=== PATIENT | female | born 1940 | race Caucasian/White ===

== ENCOUNTER → 2016-03-11 | Outpatient (CLI) | payer MEDICARE, OTHER ==
[~2016-03-11] MED LIST: LEVO75TA6 PO; LISI-275 PO
[2016-03-11 13:08] LABS: Basophils # (auto) 0 uL; Basophils % (auto) 0.5 % (0.0-2.0); Eosinophils # (auto) 0.2 uL; Eosinophils % (auto) 2.7 % (0.0-7.0); Hematocrit 41.4 % (36.0-46.0); Lymphocytes # (auto) 0.9 uL; Lymphocytes % (auto) 16.3 % (10.0-50.0); Mean Corpuscular Hemoglobin 30.4 pg (28.0-32.0); Mean Corpuscular Hgb Conc. 31.5 g/dL (32.0-36.0); Mean Corpuscular Volume 96.7 fL (80.0-100.0); Mean Platelet Volume 8.3 fL (7.4-10.4); Monocytes # (auto) 0.5 uL; Neutrophils % (auto) 71.5 % (37.0-80.0); Platelet Count (auto) 277 10^3/uL (140-450); Red Cell Distribution Width 14.6 % (11.6-16.0); White Blood Cell 5.6 10^3/uL (4.4-10.8)
[2016-03-11 13:33] LABS: Albumin 3.8 g/dL (3.4-5.0); Calcium 8.9 mg/dL (8.5-10.1); Potassium 3.5 mmol/L (3.5-5.1); Total Protein 7.6 g/dL (6.4-8.2)
[2016-03-11 13:35] LABS: Bilirubin, Total 0.6 mg/dL (0.2-1.0)
[2016-03-11 14:30] LABS: Uric Acid 5.1 mg/dL (2.6-6.0)
== END | disposition home or self-care (01) ==
LOC: LAB 11:39
DX: M06.9 Rheumatoid arthritis, unspecified (principal); M10.00 Idiopathic gout, unspecified site; M45.0 Ankylosing spondylitis of multiple sites in spine; M25.50 Pain in unspecified joint; D64.9 Anemia, unspecified; Z79.899 Other long term (current) drug therapy; I10 Essential (primary) hypertension
CPT/HCPCS: 36415; 80053; 84550; 85025; 85652; 86141

== ENCOUNTER 2020-11-05 09:53 | Inpatient (IN) | payer MEDICARE ==
[~2020-11-05] VITALS: Ht 165.1 cm; Wt 48.8 kg
[2020-11-05] MEDS ORDERED: SODIUM CHLORIDE 0.9% 1,000 ML IV ONE (10:15)
[2020-11-05] MEDS ORDERED: SODIUM CHLORIDE 0.9% 500 ML IV ONE (10:15)
[2020-11-05 11:35] LABS: Basophils # (auto) 0 10 ^3/uL (0-0.2); Basophils % (auto) 0.6 % (0.0-2.0); Eosinophils # (auto) 0.2 10 ^3/uL (0-0.8); Hemoglobin 11.2 g/dL (12.2-16.2); Lymphocytes # (auto) 0.8 10 ^3/uL (0.4-5.4); Lymphocytes % (auto) 11.2 % (10.0-50.0); Mean Corpuscular Volume 90.8 fL (80.0-100.0); Monocytes # (auto) 0.6 10 ^3/uL (0-1.3); Monocytes % (auto) 8.9 % (0.0-12.0); Neutrophils # (auto) 5.2 10 ^3/uL (1.6-8.6); Neutrophils % (auto) 76.3 % (37.0-80.0); Red Blood Cells 3.75 10^6/uL (4.0-5.20); Red Cell Distribution Width 20.6 % (11.8-14.3); White Blood Cell 6.8 10^3/uL (4.4-10.8)
[2020-11-05 11:44] LABS: Albumin 2.8 g/dL (3.4-5.0); Calcium 8.3 mg/dL (8.5-10.1); Magnesium 2.4 mg/dL (1.6-2.6); Potassium 3.2 mmol/L (3.5-5.1)
[2020-11-05 11:47] LABS: BUN/Creatinine Ratio 20.8; Bilirubin, Total 0.7 mg/dL (0.2-1.0); Total Protein 6.5 g/dL (6.4-8.2)
[2020-11-05 11:48] LABS: INR 1.21 (0.9-1.15); Partial Thromboplastin Time 27.5 sec (23.6-33.0)
[2020-11-05 12:09] LABS: Urine Bacteria MANY /hpf (None Seen); Urine Blood Negative /uL (Negative); Urine Mucus MODERATE (None Seen); Urine Specific Gravity 1.026 (1.001-1.035); Urine WBC 12 /hpf (0 - 5)
[2020-11-05] MEDS ORDERED: cefTRIAXone 1GM/50ML D5W 50 ML IV ONE (13:30)
[2020-11-05] MEDS ORDERED: POTASSIUM EFFERVESENT TAB 25 MEQ PO ONE (13:30)
[2020-11-05] MEDS ORDERED: LEVOTHYROXINE SODIUM 100 MCG/5 ML INJ IV ONE (13:30)
[2020-11-05] MEDS ORDERED: FUROSEMIDE 20 MG/2 ML VIAL IV ONE (13:30)
[2020-11-05] MEDS ORDERED: HYDROcodone-ACET 5/325MG TAB PO PRN (13:45)
[2020-11-05] MEDS ORDERED: NITROGLYCERIN 0.4 MG SL TAB SL PRN (13:45)
[2020-11-05] MEDS ORDERED: MORPHINE SULFATE INJECTION 2 MG/ML SYRG IV PRN ×2 (13:45)
[2020-11-05] MEDS ORDERED: hydrALAZINE HCL 20 MG/ML VL IV PRN (13:45)
[2020-11-05] MEDS ORDERED: ONDANSETRON HCL 4 MG/2 ML VIAL IV PRN (13:45)
[2020-11-05] MEDS ORDERED: ACETAMINOPHEN 500 MG TAB PO PRN (13:45)
[2020-11-05 14:38] LABS: Cholesterol 130 mg/dL (< 200)
[2020-11-05 14:40] LABS: HDL Cholesterol 42 mg/dL (40-59); LDL Cholesterol 85 mg/dL (< 100); Triglycerides 68 mg/dL (< 150)
[2020-11-05] MEDS ORDERED: INSUINJ37 SC (18:30)
[2020-11-05] MEDS ORDERED: ATOR10TA52 PO (18:30)
[2020-11-05] MEDS ORDERED: OMEP20TA PO (18:30)
[2020-11-05] MEDS ORDERED: PAR20T GT (18:30)
[2020-11-05] MEDS ORDERED: CARV6.2551 PO (18:30)
[2020-11-05] MEDS ORDERED: LEV50T GT (18:30)
[2020-11-05] MEDS ORDERED: MEGE1SUS5 PO (18:30)
[2020-11-05] MEDS ORDERED: SITA50TA PO (18:30)
[2020-11-05] MEDS ORDERED: DEXTROSE (50%) 50ML SYRG IV PRN (20:45)
[2020-11-05] MEDS: InsuLIN REG 1unit/0.01ml Soln (100units/ml) SC SCH (22:00)
[2020-11-05] MEDS: DOCUSATE SOD 100 MG CAP PO SCH (22:11)
[2020-11-05] MEDS: ATORVASTATIN 20 MG TAB PO SCH (22:12)
[2020-11-05] MEDS: METOPROLOL TARTRATE 25 MG TAB PO SCH (22:12)
[2020-11-05] MEDS: ACCU-CHEK COMFORT CURVE STRIP VI SCH (22:13)
[2020-11-05 22:27] VITALS: BP 125/102
[2020-11-06 05:14] VITALS: BP 142/80
[2020-11-06 05:54] LABS: Basophils # (auto) 0 10 ^3/uL (0-0.2); Basophils % (auto) 0.4 % (0.0-2.0); Eosinophils # (auto) 0 10 ^3/uL (0-0.8); Eosinophils % (auto) 0.1 % (0.0-7.0); Hematocrit 31.7 % (36.0-46.0); Hemoglobin 10.8 g/dL (12.2-16.2); Lymphocytes # (auto) 0.6 10 ^3/uL (0.4-5.4); Lymphocytes % (auto) 9.3 % (10.0-50.0); Mean Corpuscular Hemoglobin 30.4 pg (28.0-32.0); Mean Corpuscular Volume 89.6 fL (80.0-100.0); Monocytes # (auto) 0.4 10 ^3/uL (0-1.3); Monocytes % (auto) 7.1 % (0.0-12.0); Neutrophils # (auto) 5.2 10 ^3/uL (1.6-8.6); Neutrophils % (auto) 83.1 % (37.0-80.0); Red Blood Cells 3.53 10^6/uL (4.0-5.20); White Blood Cell 6.2 10^3/uL (4.4-10.8)
[2020-11-06 06:04] LABS: Red Cell Distribution Width 21.1 % (11.8-14.3)
[2020-11-06 06:10] LABS: INR 1.43 (0.9-1.15); Partial Thromboplastin Time 26.7 sec (23.6-33.0)
[2020-11-06 06:21] LABS: Potassium 3.7 mmol/L (3.5-5.1)
[2020-11-06 06:26] LABS: BUN/Creatinine Ratio 26.1; Calcium 8.4 mg/dL (8.5-10.1)
[2020-11-06] MEDS: ACCU-CHEK COMFORT CURVE STRIP VI SCH ×4 (06:51→22:11)
[2020-11-06] MEDS: InsuLIN REG 1unit/0.01ml Soln (100units/ml) SC SCH ×4 (06:51→22:00)
[2020-11-06 08:00] VITALS: BP 144/91
[2020-11-06] MEDS: LEVOTHYROXINE SODIUM 100 MCG/5 ML INJ IV SCH (09:20)
[2020-11-06] MEDS: DOCUSATE SOD 100 MG CAP PO SCH ×2 (09:20→22:10)
[2020-11-06] MEDS: ASPirin-EC 81 mg tab PO SCH (09:20)
[2020-11-06] MEDS: METOPROLOL TARTRATE 25 MG TAB PO SCH ×2 (09:21→22:11)
[2020-11-06] MEDS: LISINOPRIL 10 MG TAB PO SCH (09:21)
[2020-11-06] MEDS ORDERED: levoFLOXacin 500MG 100 ML IV ONE (10:00)
[2020-11-06] MEDS ORDERED: FUROSEMIDE 20 MG TAB PO SCH (10:00)
[2020-11-06 12:00] VITALS: BP 116/70
[2020-11-06 16:00] VITALS: BP 122/66
[2020-11-06] MEDS ORDERED: IOHEXOL 350 MG/ML 100ML IJ ONE (18:00)
[2020-11-06 22:00] VITALS: BP 125/75
[2020-11-06] MEDS: ATORVASTATIN 20 MG TAB PO SCH (22:10)
[2020-11-07 05:00] VITALS: BP 144/72
[2020-11-07] MEDS: InsuLIN REG 1unit/0.01ml Soln (100units/ml) SC SCH ×4 (06:39→22:01)
[2020-11-07] MEDS: ACCU-CHEK COMFORT CURVE STRIP VI SCH ×4 (06:39→22:01)
[2020-11-07 08:00] VITALS: BP 160/76
[2020-11-07] MEDS ORDERED: IOHEXOL 350 MG/ML 100ML IJ ONE (09:07)
[2020-11-07] MEDS: DOCUSATE SOD 100 MG CAP PO SCH ×2 (09:15→21:34)
[2020-11-07] MEDS: ASPirin-EC 81 mg tab PO SCH (09:15)
[2020-11-07] MEDS: LEVOTHYROXINE SODIUM 100 MCG/5 ML INJ IV SCH (09:15)
[2020-11-07] MEDS: LISINOPRIL 10 MG TAB PO SCH (09:16)
[2020-11-07] MEDS: levoFLOXacin 250MG 50 ML IV SCH (09:17)
[2020-11-07] MEDS: METOPROLOL TARTRATE 25 MG TAB PO SCH ×2 (09:17→22:01)
[2020-11-07] MEDS: FUROSEMIDE 20 MG/2 ML VIAL IV SCH ×2 (09:45→18:48)
[2020-11-07 12:00] VITALS: BP 153/75
[2020-11-07] MEDS: ATORVASTATIN 20 MG TAB PO SCH (21:35)
[2020-11-07 22:00] VITALS: BP 139/63
[2020-11-08 05:00] VITALS: BP 112/57
[2020-11-08] MEDS: InsuLIN REG 1unit/0.01ml Soln (100units/ml) SC SCH ×2 (05:36→11:37)
[2020-11-08] MEDS: ACCU-CHEK COMFORT CURVE STRIP VI SCH ×2 (05:36→11:36)
[2020-11-08] MEDS: FUROSEMIDE 20 MG/2 ML VIAL IV SCH (06:35)
[2020-11-08] MEDS ORDERED: LEVO50TA7 PO (07:39)
[2020-11-08] MEDS: levoFLOXacin 250MG 50 ML IV SCH (08:39)
[2020-11-08] MEDS: DOCUSATE SOD 100 MG CAP PO SCH (08:39)
[2020-11-08] MEDS: ASPirin-EC 81 mg tab PO SCH (08:39)
[2020-11-08] MEDS: LISINOPRIL 10 MG TAB PO SCH (08:40)
[2020-11-08] MEDS: LEVOTHYROXINE SODIUM 100 MCG/5 ML INJ IV SCH (08:40)
[2020-11-08 08:52] VITALS: BP 121/60
[2020-11-08] MEDS: METOPROLOL TARTRATE 25 MG TAB PO SCH (10:00)
[2020-11-08 12:26] VITALS: BP 121/60
[2020-11-08 12:42] VITALS: BP 143/77
== END 2020-11-08 13:30 | disposition home health service (06) | DRG 871 ==
LOC: ER 09:53 → EDBD 09:53 → TELE 13:44 → TELE-CENTR 17:28
PROVIDERS: ADMIT Nurse Practitioner Acute Care; ATTEND Family Medicine
DX: A41.9 Sepsis, unspecified organism (principal); I21.4 Non-ST elevation (NSTEMI) myocardial infarction; I50.23 Acute on chronic systolic (congestive) heart failure; J18.9 Pneumonia, unspecified organism; E44.0 Moderate protein-calorie malnutrition; R64 Cachexia; N39.0 Urinary tract infection, site not specified; Z68.1 Body mass index [BMI] 19.9 or less, adult; I13.0 Hypertensive heart and chronic kidney disease with heart failure and stage 1 through stage 4 chronic kidney disease, or unspecified chronic kidney disease; I87.8 Other specified disorders of veins; E11.21 Type 2 diabetes mellitus with diabetic nephropathy; E03.9 Hypothyroidism, unspecified; E87.6 Hypokalemia; K59.00 Constipation, unspecified; N18.31 Chronic kidney disease, stage 3a; B96.1 Klebsiella pneumoniae [K. pneumoniae] as the cause of diseases classified elsewhere; E11.22 Type 2 diabetes mellitus with diabetic chronic kidney disease; E78.00 Pure hypercholesterolemia, unspecified; I34.0 Nonrheumatic mitral (valve) insufficiency; Z20.822 Contact with and (suspected) exposure to COVID-19; R54 Age-related physical debility; R79.89 Other specified abnormal findings of blood chemistry; Z88.1 Allergy status to other antibiotic agents; Z88.8 Allergy status to other drugs, medicaments and biological substances; Z88.5 Allergy status to narcotic agent
CPT/HCPCS: 36415; 71045; 71046; 71275; 78582; 80048; 80053; 80061; 81001; 82962; 83735; 83880; 84443; 84484; 85025; 85379; 85610; 85730; 86141; 87040; 87086; 87088; 87186; 87426; 93005; 93306; 93970; 96361; 96365; 96375; G0378; J0696; J1815; J1956; J3490